=== PATIENT | female | born 1990 | race Caucasian/White ===

== ENCOUNTER 2018-12-23 13:42 | Emergency (ER) | payer MEDICAID, OTHER ==
[~2018-12-23] VITALS: Ht 154.9 cm; Wt 65.6 kg
[~2018-12-23 13:42] MED LIST: TYL500 PO
[2018-12-23 14:29] VITALS: BP 125/85; PULSE 69; RESP 20; Ht 154.9 cm; Wt 65.6 kg
[2018-12-23] MEDS ORDERED: ONDANSETRON (ODT) 4 MG TAB ODT STA (16:43)
[2018-12-23] MEDS ORDERED: ONDA4TAB14 PO (16:54)
[2018-12-23] MEDS ORDERED: BISM-34 PO (16:54)
[2018-12-23] MEDS ORDERED: ACETAMINOPHEN 325 MG TAB PO ONE (17:00)
--- NOTE | 2018-12-23 17:04 | ERD ---
ER Documentation Chief Complaint Chief Complaint c/o N/V with diarhea for a couple of days. Feeling weak HPI 28-year-old female previously healthy presenting to the emergency department com plaining of intermittent nausea, vomiting, and diarrhea for the past 1 day. The patient also reports tactile fevers. Symptoms are moderate in severity. She has been taking Aleve at home with relief. She denies any episodes of vomiting today. She denies abdominal pain, sore throat, cough, dysuria, sick contacts, or other symptoms at this time. ROS All systems reviewed and are negative except as per history of present illness. Medications Home Meds Active Scripts Ondansetron (Ondansetron Odt) 4 Mg Tab.rapdis, 4 MG PO Q6H PRN for NAUSEA AND/OR VOMITING, #10 TAB Prov:NINA BARRY PA-C 12/23/18 Bismuth Subsalicylate* (Bismuth Subsalicylate*) 262 Mg/15 Ml Oral.susp, 15 ML PO Q6 PRN for DIARRHEA, #1 BOTTLE Prov:NINA BARRY PA-C 12/23/18 Acetaminophen* (Tylenol*) 500 Mg Tab, 500 MG PO Q4H PRN for MILD PAIN LEVEL 1-3, #14 TAB Prov:VERÓNICA REYNOSO MD 09/15/15 Allergies Allergies: Coded Allergies: No Known Allergies (Unverified Allergy, Unknown, 03/12/14) PMhx/Soc Medical and Surgical Hx: pt denies Medical Hx History of Surgery: No Anesthesia Reaction: No Hx Neurological Disorder: No Hx Respiratory Disorders: No Hx Cardiac Disorders: No Hx Psychiatric Problems: No Hx Miscellaneous Medical Probl: No Hx Alcohol Use: No Hx Substance Use: No Hx Tobacco Use: No Smoking Status: Never smoker FmHx Family History: No diabetes Physical Exam Vitals Vital Signs Date Temp Pulse Resp B/P (MAP) Pulse Ox O2 O2 Flow FiO2 Time Delivery Rate 12/23/18 98.3 69 20 125/85 100 14:29 (98) Physical Exam Const: No acute distress Head: Atraumatic Eyes: Normal Conjunctiva ENT: Normal External Ears, Nose and Mouth. No erythema to the posterior pharynx. No tonsillar enlargement. No exudates. Uvula is midline. Neck: Full range of motion. No meningismus. Resp: Clear to auscultation bilaterally Cardio: Regular rate and rhythm, no murmurs Abd: Soft, non tender, non distended. Normal bowel sounds. No rebound tenderness or guarding. No McBurney's point tenderness. Skin: No petechiae or rashes Back: No midline or flank tenderness Ext: No cyanosis, or edema Neur: Awake and alert Psych: Normal Mood and Affect Results 24 hrs Current Medications Medications Dose Sig/Sreedhar Start Time Status Last (Trade) Ordered Route PRN Stop Time Admin Dose Reason Admin 650 mg ONCE ONCE 12/23/18 12/23/18 Acetaminophen PO 17:00 16:50 (Tylenol 12/23/18 17:01 Tab) Ondansetron 4 mg ONCE STAT 12/23/18 DC 12/23/18 HCl (Zofran ODT 16:43 16:51 Odt) 12/23/18 16:44 Procedures/MDM 28-year-old female presented to the emergency department complaining of intermittent nausea, vomiting, and diarrhea. Patient is nontoxic and well- appearing. Patient was administered Tylenol and Zofran in the department good response. She is feeling improved prior to discharge. The patient's clinical presentation is very consistent with an acute viral syndrome. The patient does not exhibit any clinical signs or symptoms concerning for serious bacterial infection or systemic illness. Based on history and clinical exam findings the patient does not appear to have evidence of pneumonia, strep pharyngitis, urinary tract infection, bacteremia, sepsis, or meningitis. For these reasons I do not believe it is necessary to obtain laboratory testing or diagnostic imaging. I believe it would be appropriate for symptom control, and close outpatient primary care follow-up. Based on patient's history of present illness and physical examination the decision was made to discharge. There is no evidence of life threatening injuries or illnesses at this time. On re-examination, patient resting in no distress, stable vital signs, reports feeling better and safe for discharge with outpatient follow up with PMD in 1-2 days. Patient given return precautions. Departure Diagnosis: Primary Impression: Nausea, vomiting and diarrhea Condition: Fair Patient Instructions: Diarrhea, Viral (Child) (Adult), Vomiting (8Y-Adult) Referrals: [facility] YOU HAVE RECEIVED A MEDICAL SCREENING EXAM AND THE RESULTS INDICATE THAT YOU DO NOT HAVE A CONDITION THAT REQUIRES URGENT TREATMENT IN THE EMERGENCY DEPARTMENT. FURTHER EVALUATION AND TREATMENT OF YOUR CONDITION CAN WAIT UNTIL YOU ARE SEEN IN YOUR DOCTORS OFFICE WITHIN THE NEXT 1-2 DAYS. IT IS YOUR RESPONSIBILITY TO MAKE AN APPOINTMENT FOR FOLOW-UP CARE. IF YOU HAVE A PRIMARY DOCTOR --you should call your primary doctor and schedule an appointment IF YOU DO NOT HAVE A PRIMARY DOCTOR YOU CAN CALL OUR PHYSICIAN REFERRAL HOTLINE AT IF YOU CAN NOT AFFORD TO SEE A PHYSICIAN YOU CAN CHOSE FROM THE FOLLOWING [facility] [id number] [facility] [address] [facility] [facility] [address] [facility] [address] [facility] [address] [facility] [facility]. [address] Additional Instructions: Call your primary care doctor TOMORROW for an appointment during the next 1-2 days.See the doctor sooner or return here if your condition worsens before your appointment time. NINA BARRY PA-C Dec 23, 2018 17:04
== END 2018-12-23 17:06 | disposition home or self-care (01) ==
LOC: FTE 13:42
DX: R11.2 Nausea with vomiting, unspecified (principal); R19.7 Diarrhea, unspecified
CPT/HCPCS: Z7502; Z7610; 99283